=== PATIENT | female | born 1995 | race Two or more races ===

== ENCOUNTER 2021-11-08 06:26 | Day surgery (SDC) | payer OTHER ==
[~2021-11-08] VITALS: Ht 165.1 cm; Wt 54.0 kg
== END 2021-11-08 14:30 | disposition home or self-care (01) ==
LOC: CIR.AMB 06:26
PROVIDERS: ATTEND Surgery
DX: N60.31 Fibrosclerosis of right breast (principal); N62 Hypertrophy of breast; Z20.822 Contact with and (suspected) exposure to COVID-19; G43.909 Migraine, unspecified, not intractable, without status migrainosus